=== PATIENT | male | born 1950 | race Caucasian/White ===

== ENCOUNTER 2016-10-19 18:30 | Inpatient (IN) | payer MEDICARE, OTHER ==
[~2016-10-19] VITALS: Ht 162.6 cm; Wt 71.9 kg
[2016-10-19] MEDS ORDERED: PROA PO (19:12)
[2016-10-19] MEDS ORDERED: LACTULOSE10 GM/152 PO (19:12)
[2016-10-19] MEDS ORDERED: ADULT LOW DOSE81 MG PO (19:13)
[2016-10-19] MEDS ORDERED: FUROSEMIDE40 MG PO (19:13)
[2016-10-19] MEDS ORDERED: METFORMIN HCL1000 MG PO (19:13)
[2016-10-19] MEDS ORDERED: NEXAVAR200 MG PO (19:14)
[2016-10-19] MEDS ORDERED: RESTASIS0.051 OP (19:14)
[2016-10-19] MEDS ORDERED: SPIRONOLACTONE100 MG PO (19:14)
[2016-10-19] MEDS ORDERED: MIRALAX17 GM/Dose PO (19:14)
[2016-10-19] MEDS ORDERED: SIMVASTATIN20 M1 PO (19:14)
[2016-10-19 19:50] LABS: BASOPHIL % 0.2 % (0-2)
[2016-10-19 19:54] LABS: PLATELET COUNT 94 x10^3mcL (130-400); RED CELL DISTRIBUTION WIDTH 19.6 % (11.5-14.5)
[2016-10-19 20:03] LABS: CALCIUM 7.9 mg/dL (8.5-10.1); CARBON DIOXIDE 11.9 mmol/L (21-32); CHLORIDE SERUM 108 mmol/L (98-107); CREATININE SERUM 1.8 mg/dL (0.7-1.3); GFR1 40 mL/min; GLUCOSE SERUM 244 mg/dL (74-106); POTASSIUM SERUM 4.6 mmol/L (3.5-5.1); SODIUM SERUM 137 mmol/L (136-145)
[2016-10-19 20:07] LABS: ALKALINE PHOSPHATASE 126 U/L (46-116); ALT/SGPT 65 U/L (16-63); AST/SGOT 66 U/L (15-37); BILIRUBIN TOTAL 10.53 mg/dL (0.20-1.00); TOTAL PROTEIN, SERUM 6.6 g/dL (6.4-8.2)
[2016-10-19 20:17] LABS: ALBUMIN 2.6 g/dL (3.4-5.0)
[2016-10-19 23:17] VITALS: BP 130/69
[2016-10-19 23:25] LABS: PHOSPHOROUS 2.9 mg/dL (2.5-4.9)
[2016-10-19 23:27] LABS: CHOLESTEROL/HDL RATIO 5.4
[2016-10-19 23:33] LABS: FREE T4 1.66 ng/dL (0.76-1.46); T4(THYROXINE) 5.5 ug/dL (4.7-13.3)
[2016-10-20 00:30] LABS: T3 TOTAL 0.91 ng/mL
[2016-10-20 05:29] VITALS: BP 107/54
[2016-10-20 07:09] LABS: PLATELET COUNT 81 x10^3mcL (130-400); RED CELL DISTRIBUTION WIDTH 19.4 % (11.5-14.5)
[2016-10-20 08:02] LABS: CALCIUM 8.5 mg/dL (8.5-10.1); CARBON DIOXIDE 14.6 mmol/L (21-32); CREATININE SERUM 1.5 mg/dL (0.7-1.3); MAGNESIUM 2.3 mg/dL (1.8-2.4); PHOSPHOROUS 3.2 mg/dL (2.5-4.9); POTASSIUM SERUM 4.4 mmol/L (3.5-5.1)
[2016-10-20 09:20] VITALS: BP 114/51
[2016-10-20 11:00] LABS: microscopic required? YES; urine erythrocyte TRACE (NEGATIVE)
[2016-10-20 13:20] VITALS: BP 98/60
[2016-10-20 13:46] LABS: AMPHETAMINE QUAL UR NONE DETECTED (NEG <=1000)
[2016-10-20] MEDS ORDERED: XIFAXAN550 M1 PO (16:02)
[2016-10-20 17:55] VITALS: BP 102/60
[2016-10-20 20:38] VITALS: BP 108/63
[2016-10-21 05:07] VITALS: BP 120/67
[2016-10-21 06:49] LABS: CALCIUM 8.1 mg/dL (8.5-10.1); CARBON DIOXIDE 12.7 mmol/L (21-32); CREATININE SERUM 1.5 mg/dL (0.7-1.3); POTASSIUM SERUM 4.6 mmol/L (3.5-5.1)
[2016-10-21 07:20] LABS: BASOPHIL % 0.4 % (0-2); PLATELET COUNT 90 x10^3mcL (130-400); RED CELL DISTRIBUTION WIDTH 19.3 % (11.5-14.5)
[2016-10-21 07:37] LABS: FREE T4 1.67 ng/dL (0.76-1.46); FREE THYROXINE INDEX 2.4 ug/dL (1.4-4.5); T3 TOTAL 0.44 ng/mL; T4(THYROXINE) 6.4 ug/dL (4.7-13.3)
[2016-10-21 09:38] VITALS: BP 102/60
[2016-10-21 10:32] VITALS: BP 102/60
== END 2016-10-21 11:40 | disposition home or self-care (01) | DRG 100 ==
LOC: ED 18:30 → DU 22:10
PROVIDERS: Emergency Medicine Emergency Medical Services; ADMIT Family Medicine
DX: R56.9 Unspecified convulsions (principal); N17.0 Acute kidney failure with tubular necrosis; E43 Unspecified severe protein-calorie malnutrition; C22.0 Liver cell carcinoma; E87.2 Acidosis; D68.69 Other thrombophilia; E11.9 Type 2 diabetes mellitus without complications; E83.42 Hypomagnesemia; E87.8 Other disorders of electrolyte and fluid balance, not elsewhere classified; E78.5 Hyperlipidemia, unspecified; E02 Subclinical iodine-deficiency hypothyroidism; Z68.27 Body mass index [BMI] 27.0-27.9, adult
CPT/HCPCS: 82962; 83880; 84439; 97110-GP; 97116-GP; 97530-GP; C9113; G0480; J1815; J1953; J2060; J3475; J3490; J7030; Q0092